=== PATIENT | male | born 1975 ===

== ENCOUNTER 2017-07-26 06:59 | Emergency (ER) | payer OTHER ==
[2017-07-26] MEDS ORDERED: Ketorolac 60 MG/2 ML SDV IM ONE (07:11)
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
--- NOTE | 2017-07-26 08:42 | CR ---
EXAMINATION: Left shoulder and left humerus HISTORY: Pain COMPARISON: None TECHNIQUE: 3 views of the left shoulder and 2 views of the left humerus FINDINGS/IMPRESSION: There is no acute osseous abnormality, dislocation, or fracture. Bone mineraliza tion is normal. Joint spaces are grossly preserved. No focal soft tissue swelling.
--- NOTE | 2017-07-26 08:44 | CR ---
EXAMINATION: Right ankle HISTORY: Pain COMPARISON: None TECHNIQUE: 3 views FINDINGS: There is possibly a tiny avulsion fracture along the inferior aspect of the medial malleolu s with moderate overlying soft tissue swelling. The remaining osseous structures and joint spaces timothy ear grossly preserved. Early osteoarthritic changes are noted. Bone mineralization is otherwise padmini l. IMPRESSION: Possible nondisplaced small avulsion injury involving the medial malleolus with overlying soft tissue swelling.
[2017-07-26 09:19] VITALS: BP 155/107
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
== END 2017-07-26 09:26 | disposition home or self-care (01) ==
LOC: MW.ED 06:59
DX: S40.011A Contusion of right shoulder, initial encounter (principal); V49.9XXA Car occupant (driver) (passenger) injured in unspecified traffic accident, initial encounter
CPT/HCPCS: 70450; 73030; 73060; 73610; 96372; 99284; J1885; 99283